=== PATIENT | female | born 1970 | race Caucasian/White ===

== ENCOUNTER 2016-11-24 16:24 | Emergency (ER) | payer BC ==
[~2016-11-24] VITALS: Ht 167.6 cm; Wt 69.9 kg
[2016-11-24 16:32] VITALS: Ht 167.6 cm; Wt 69.9 kg
[2016-11-24] MEDS ORDERED: SODIUM CHLORIDE 0.9% 1000ML 1,000 ML IV STA (16:55)
[2016-11-24] MEDS ORDERED: ACET-1256 PO (17:06)
[2016-11-24] MEDS ORDERED: MULT-513 PO (17:06)
[2016-11-24] MEDS ORDERED: FERR1TAB23 PO (17:06)
[2016-11-24 17:09] VITALS: O2SAT 100
--- NOTE | 2016-11-24 17:15 | DIAGNOSTIC IMAGING REPORT ---
CHEST ONE VIEW PORTABLE HISTORY: syncope COMPARISON: Chest 11/27/2014. FINDINGS: The lungs are clear. Cardiac silhouette is normal in size. No pleural effusions. No pneumothorax. IMPRESSION: No acute process. Electronically signed by: Brian Manuel M.D. 11/24/2016 5:14 PM Dictated Date/Time: 11/24/2016 5:13 PM
--- NOTE | 2016-11-24 17:44 | DIAGNOSTIC IMAGING REPORT ---
HEAD CT NONCONTRAST CT DOSE: 651.12 mGy.cm HISTORY: syncope head injury TECHNIQUE: Multiaxial CT images of the head were performed without the use of intravenous contrast. Automated exposure control was utilized for this study. Comparison: None. Findings: The paranasal sinuses and mastoid air cells are clear. The calvarium and skull base are intact. The ventricles and sulci are within normal limits. There is no mass, hematoma, midline shift, or acute infarct. Impression: No acute intracranial abnormality. Electronically signed by: Brian Manuel M.D. 11/24/2016 5:43 PM Dictated Date/Time: 11/24/2016 5:37 PM
[2016-11-24 17:49] LABS: BASO % 0.1 %; BASO ABS # 0.01 K/uL (0-0.2); COMPLETE YES; EOS % 1.5 %; IG% 0.1 %; LYMPH % 27.8 %; LYMPH ABS # 2.27 K/uL (1.2-3.4); MEAN CELL VOLUME 92.9 fL (80-100); MEAN CORPUSCULAR HEMOGLOBIN 30.3 pg (25-34); MEAN CORPUSCULAR HGB CONC 32.6 g/dl (32-36); MONO % 5.8 %; NEUT % 64.7 %; PLATELET COUNT 255 K/uL (130-400); RED BLOOD COUNT 4.52 M/uL (4.2-5.4); WHITE BLOOD COUNT 8.16 K/uL (4.8-10.8)
[2016-11-24 17:55] LABS: URINE APPEARANCE CLEAR (CLEAR); URINE BILIRUBIN NEG (NEG); URINE COLOR YELLOW; URINE EPITHELIAL CELL AUTO >30 /lpf (0-5); URINE NITRITE NEG (NEG); URINE SPECIFIC GRAVITY 1.018 (1.000-1.030); UROBILINOGEN NEG (NEG); ZZUR CULT IF INDIC CLEAN CATCH YES
[2016-11-24 17:57] LABS: MANUAL MICROSCOPIC REQUIRED? NO; REVIEW REQ? NO
[2016-11-24 18:01] LABS: INR 0.9 (0.9-1.1); PARTIAL THROMBOPLASTIN RATIO 0.9; PROTHROMBIN TIME (PATIENT) 10.1 SECONDS (9.0-12.0)
[2016-11-24 18:02] LABS: PREG INTERNAL NEGATIVE QC NEG CLEAR BACKGROUND; PREG INTERNAL POSITIVE QC POS CONTROL LINE
[2016-11-24 18:08] LABS: BUN/CREATININE RATIO 17.1 (10-20); CALCIUM 9.5 mg/dl (8.5-10.1); CREATININE 0.8 mg/dl (0.60-1.20); MAGNESIUM 2.2 mg/dl (1.8-2.4)
[2016-11-24 18:19] LABS: ALB/GLOB RATIO 1.2 (0.9-2); THYROID STIMULATING HORMONE 1.09 uIu/ml (0.300-4.500)
[2016-11-24 18:29] LABS: BENZODIAZEPINE, URINE NEG (NEG); COCAINE,URINE NEG (NEG); PHENCYCLIDINE, URINE NEG (NEG)
--- NOTE | 2016-11-24 19:24 | EMERGENCY ROOM VISIT NOTE ---
History First contact with patient: 16:40 Chief Complaint: SYNCOPE Stated Complaint: FAINTED, HIT HEAD Nursing Triage Summary: pt reports she had 2 syncopal episodes today after having mohs surgery yesterday. 2nd times hit back of head on left side on table. sent here by family for eval History of Present Illness The patient is a 46 year old female who presents to the Emergency Department by private vehicle for evaluation after an episode of syncope 2. The patient reports that she had MOHS surgery performed yesterday to the face. She had feeling well until this morning. She awoke and was attempting to change the dressings at approximately 11 AM when she became very "queasy". She reports that she caught into the shower and felt lightheaded. She reports that this is not completely atypical for the patient as she is felt lightheadedness sharp 4. Her typical treatments to turn the [place] on which does seem to help. She did do this, but reports that she felt tunneling vision and lightheaded. She woke on the shower floor. She laid there for a few minutes. She was able to get herself on the top and walked to the bed. When she went to the bed, she reports that she felt lightheaded again and woke up on her floor with the coffee table's lamp laying next to her broken. Patient complains of mild headache rating her discomfort a 3/10. She complains of some mild nausea. The patient currently denies any dizziness, light headedness, slurred speech, facial droop, unilateral weakness/numbness, chest pain, palpitations, short of breath, hemoptysis, vomiting, pain, or abdominal pain. The patient reports no urinary symptoms. She denies any chance for . There is been no recent long distance travel. She reports no history of blood clots or bleeding disorders. She reports no smoking history. Review of Systems A complete 10-point Review of Systems was discussed with the patient, with pertinent positives and negatives listed in the History of Present Illness. All remaining Review of Systems questions can be considered negative unless otherwise specified. Social History Smoking Status: Never Smoker Smokeless Tobacco Use: No Alcohol Use: none Drug Use: none Housing Status: lives with family Current/Historical Medications Scheduled Acetaminophen (Tylenol), 1,000 MG PO PRN UD Ferrous Sulfate (Iron), 325 MG PO DAILY Multivitamins/Minerals (Mvi With Minerals), 1 TAB PO DAILY Allergies Coded Allergies: Penicillins (Verified Allergy, ., 02/11/12) Physical Exam Vital Signs Date Time Temp Pulse Resp B/P Pulse Ox O2 Delivery O2 Flow Rate FiO2 11/24/16 19:45 36.8 75 16 111/75 100 11/24/16 19:13 75 16 111/75 11/24/16 18:24 73 16 11/24/16 17:54 71 19 11/24/16 17:15 122/72 11/24/16 17:12 66 11/24/16 17:09 100 Room Air 11/24/16 17:09 36.8 102 18 122/72 100 Room Air 11/24/16 16:46 100 Room Air 11/24/16 16:45 122/72 11/24/16 16:43 83 18 121/73 96 Room Air 80 131/78 102 122/72 11/24/16 16:32 36.8 78 18 123/78 94 Room Air Pain Rating (0-10): 3 Physical Exam VITAL SIGNS - Vital signs and nursing notes were reviewed. GENERAL - 46-year-old female appearing her stated age who is in no acute distress. Communicates well with provider and answers questions appropriately. HEAD - Normocephalic, Atraumatic. No Hammond's Sign or Raccoon's Eyes. No depressed skull fractures palpable. EYES - PERRL with EOMI bilaterally. Sclera anicteric. Palpebral conjunctiva pink and moist with no injection noted. EARS - No deformities of external structures noted on gross examination bilaterally. No pain elicited with palpation of the tragus bilaterally. External auditory canals without discharge or otorrhea. Tympanic membranes pearly gonzalez without retraction or bulging. NOSE - Midline and without cyanosis. No epistaxis or purulent drainage noted. Septum midline without deviation or septal hematoma noted. MOUTH/OROPHARYNX - Without perioral cyanosis. Buccal mucosa pink and moist and without leukoplakia. Tongue midline with equal elevation of palate bilaterally. No tonsillar hypertrophy, erythema, or exudates noted. Good dentition noted. NECK - Neck with FROM. Supple to palpation. No lymphadenopathy noted. No nuchal rigidity. LUNGS - Chest wall symmetric without accessory muscle use, intercostals retractions, or central cyanosis. Normal vesicular breath sounds CTA B/L. No wheezes, rales, or rhonchi appreciated. CARDIAC - RRR with S1/S2. No murmur, rubs, or gallops appreciated. ABDOMEN - Abdominal contour flat and without pulsations or visible masses. BS normoactive all four quadrants. No tenderness, palpable masses, hepatosplenomegaly, or ascites noted. EXTREMITIES - No pretibial edema present. +3/5 radial and dorsalis pedis pulses palpated throughout. FROM with no tremors, fasciculations, or clonus noted on PROM throughout. +5/5 strength noted in UE/LE bilaterally. NEUROLOGIC - Cranial nerves II through XII grossly intact. Sensory intact to light touch throughout. Patellar reflexes +2/4. Patient able to perform rapid alternating movements appropriately. Negative Pronator Drift. Negative finger-to -nose. PSYCH - A&Ox3 and cooperates fully with examiner. Pt is very pleasant and interacts well with examiner. Medical Decision & Procedures ER Provider Diagnostic Interpretation: Radiological imaging and reports were reviewed by myself. Radiologist's Interpretation as follows: CHEST ONE VIEW PORTABLE HISTORY: syncope COMPARISON: Chest 11/27/2014. FINDINGS: The lungs are clear. Cardiac silhouette is normal in size. No pleural effusions. No pneumothorax. IMPRESSION: No acute process. HEAD CT NONCONTRAST CT DOSE: 651.12 mGy.cm HISTORY: syncope head injury TECHNIQUE: Multiaxial CT images of the head were performed without the use of intravenous contrast. Automated exposure control was utilized for this study. Comparison: None. Findings: The paranasal sinuses and mastoid air cells are clear. The calvarium and skull base are intact. The ventricles and sulci are within normal limits. There is no mass, hematoma, midline shift, or acute infarct. Impression: No acute intracranial abnormality. Laboratory Results 11/24/16 17:36 Red Blood Count 4.52, Mean Corpuscular Volume 92.9, Mean Corpuscular Hemoglobin 30.3, Mean Corpuscular Hemoglobin Concent 32.6, Mean Platelet Volume 11.0, Neutrophils (%) (Auto) 64.7, Lymphocytes (%) (Auto) 27.8, Monocytes (%) (Auto) 5.8, Eosinophils (%) (Auto) 1.5, Basophils (%) (Auto) 0.1, Neutrophils # (Auto) 5.28, Lymphocytes # (Auto) 2.27, Monocytes # (Auto) 0.47, Eosinophils # (Auto) 0.12, Basophils # (Auto) 0.01 11/24/16 17:36 Test 11/24/16 17:36 11/24/16 17:44 White Blood Count 8.16 K/uL (4.8-10.8) Red Blood Count 4.52 M/uL (4.2-5.4) Hemoglobin 13.7 g/dL (12.0-16.0) Hematocrit 42.0 % (37-47) Mean Corpuscular Volume 92.9 fL (80-100) Mean Corpuscular Hemoglobin 30.3 pg (25-34) Mean Corpuscular Hemoglobin Concent 32.6 g/dl (32-36) Platelet Count 255 K/uL (130-400) Mean Platelet Volume 11.0 fL (7.4-10.4) Neutrophils (%) (Auto) 64.7 % Lymphocytes (%) (Auto) 27.8 % Monocytes (%) (Auto) 5.8 % Eosinophils (%) (Auto) 1.5 % Basophils (%) (Auto) 0.1 % Neutrophils # (Auto) 5.28 K/uL (1.4-6.5) Lymphocytes # (Auto) 2.27 K/uL (1.2-3.4) Monocytes # (Auto) 0.47 K/uL (0.11-0.59) Eosinophils # (Auto) 0.12 K/uL (0-0.5) Basophils # (Auto) 0.01 K/uL (0-0.2) RDW Standard Deviation 50.0 fL (36.4-46.3) RDW Coefficient of Variation 14.7 % (11.5-14.5) Immature Granulocyte % (Auto) 0.1 % Immature Granulocyte # (Auto) 0.01 K/uL (0.00-0.02) Prothrombin Time 10.1 SECONDS (9.0-12.0) Prothromb Time International Ratio 0.9 (0.9-1.1) Activated Partial Thromboplast Time 22.7 SECONDS (21.0-31.0) Partial Thromboplastin Ratio 0.9 Urine Color YELLOW Urine Appearance CLEAR (CLEAR) Urine pH 6.0 (4.5-7.5) Urine Specific [place] 1.018 (1.000-1.030) Urine Protein NEG (NEG) Urine Glucose (UA) NEG (NEG) Urine Ketones NEG (NEG) Urine Occult Blood TRACE (NEG) Urine Nitrite NEG (NEG) Urine Bilirubin NEG (NEG) Urine Urobilinogen NEG (NEG) Urine Leukocyte Esterase SMALL (NEG) Urine WBC (Auto) 1-5 /hpf (0-5) Urine RBC (Auto) 5-10 /hpf (0-4) Urine Hyaline Casts (Auto) 0 /lpf (0-5) Urine Epithelial Cells (Auto) >30 /lpf (0-5) Urine Bacteria (Auto) 1+ (NEG) Urine Test NEG (NEG) Anion Gap 8.0 mmol/L (3-11) Est Creatinine Clear Calc Drug Dose 81.3 ml/min Estimated GFR () 101.8 Estimated GFR (Non- 87.8 BUN/Creatinine Ratio 17.1 (10-20) Calcium Level 9.5 mg/dl (8.5-10.1) Magnesium Level 2.2 mg/dl (1.8-2.4) Total Bilirubin 0.4 mg/dl (0.2-1) Aspartate Amino Transf (AST/SGOT) 9 U/L (15-37) Alanine Aminotransferase (ALT/SGPT) 19 U/L (12-78) Alkaline Phosphatase 57 U/L (45-117) Total Creatine Kinase 30 U/L (26-192) Creatine Kinase MB 0.9 ng/ml (0.5-3.6) Creatine Kinase MB Ratio 3.0 (0-3.0) Total Protein 7.9 gm/dl (6.4-8.2) Albumin 4.3 gm/dl (3.4-5.0) Globulin 3.6 gm/dl (2.5-4.0) Albumin/Globulin Ratio 1.2 (0.9-2) Lipase 192 U/L (73-393) Thyroid Stimulating Hormone (TSH) 1.090 uIu/ml (0.300-4.500) Urine Opiates Screen NEG (NEG) Urine Methadone, Qualitative NEG (NEG) Urine Barbiturates NEG (NEG) Urine Phencyclidine (PCP) Level NEG (NEG) Ur Amphetamine/Methamphetamine NEG (NEG) MDMA (Ecstasy) Screen NEG (NEG) Urine Benzodiazepines Screen NEG (NEG) Urine Cocaine Metabolite NEG (NEG) Urine Marijuana (THC) NEG (NEG) Bedside Troponin I 0.000 ng/ml (0-0.045) Medications Administered Medications (Trade) Dose Ordered Sig/Kassie Route Start Time Stop Time Status Last Admin Dose Admin Sodium Chloride (Nss 1000ml) 1,000 ml @ 999 mls/hr Q1H1M STAT IV 11/24/16 16:55 11/24/16 17:55 DC 11/24/16 17:52 999 MLS/HR Procedure Patient was placed on the playground monitor and monitored throughout the entire extent of their stay. In addition, the patient's pulse oximetry was monitored throughout the entire stay. Any abnormalities or aberrancies were addressed appropriately. ECG Indication: syncope Rate (beats per minute): 66 Rhythm: normal sinus Findings: no acute ischemic change, no ectopy Comparison ECG Date: no prior available ED Course Patient was seen and evaluated by myself. Labs were drawn, saline lock in place. EKG and chest x-rays were obtained. CT the head was obtained. She was hydrated with a 1000 mL normal saline bolus. Laboratory results demonstrate no acute leukocytosis, worrisome anemia, or bandemia. The patient has no significant electrolyte abnormalities. Cardiac enzymes are negative. Troponin was negative. Drug screen was negative. Urinalysis demonstrated no acute findings. Patient was reevaluated and is resting currently. Laboratory results and imaging studies were reviewed with the patient who acknowledges understanding. She was encouraged to follow-up with her primary care provider from today's visit. She was educated on worrisome symptoms for return visit to the emergency department. Patient discharged home afebrile and in good condition. Medical Decision Given the patient's presentation and stated complaints, I did elect to perform the above-mentioned workup. The patient presents today after sustaining sig be 2. This occurred several hours prior to arrival. She had no significant change in blood pressure or heart rate with positional blood pressures. She has no EKG changes. Cardiac enzymes are negative. She has no risk factors for PE. She is not hypoxic. She is not tachycardic. She is not tachypnea. She is no focal neurological deficits. CT the head is unremarkable. Laboratory results and imaging studies were reviewed with the patient who acknowledges understanding. The patient was educated on worrisome symptoms for return visit to the emergency department. Patient discharged home afebrile and in good condition. In the evaluation and treatment of this patient, the following differential diagnoses were considered: DC, ASC, Dysrhythmia, Angina, Mediastinitis, GERD, Esophagitis, PE, Pneumonia, Bronchitis, Costochondritis, Rib Fracture, Zoster. Impression Primary Impression: Syncope Departure Information Dispostion Home / Self-Care Condition GOOD Referrals Reshma Dias D.O. (PCP) Patient Instructions ED Near Syncope Vasovagal, My [facility] Additional Instructions You've been seen in the emergency department today after syncopal episodes 2. Drink plenty of fluids and stay well-hydrated. Follow-up with your primary care provider from today's visit. Return for any changing or worsening symptoms. Problem Qualifiers Primary Impression: Syncope Syncope type: vasovagal syncope Qualified Codes: R55 - Syncope and collapse
[2016-11-24 19:45] VITALS: BP 111/75; PULSE 75; TEMP 36.8; O2SAT 100
== END 2016-11-24 19:46 | disposition home or self-care (01) ==
LOC: C.EDB 16:26 → C.EDC 19:46
DX: R55 Syncope and collapse (principal); S09.90XA Unspecified injury of head, initial encounter; W22.8XXA Striking against or struck by other objects, initial encounter; Z88.0 Allergy status to penicillin